=== PATIENT | male | born 1960 | race Caucasian/White ===

== ENCOUNTER 2017-01-31 08:28 | Emergency (ER) | payer BC, OTHER ==
[~2017-01-31] VITALS: Ht 172.7 cm; Wt 80.0 kg
[~2017-01-31 08:28] MED LIST: BACT800T5 PO; CEPH500C3 PO
[2017-01-31 08:31] VITALS: BP 115/74; PULSE 94; RESP 16; TEMP 98.2; O2SAT 97
[2017-01-31] MEDS ORDERED: LISI-519 PO (08:50)
[2017-01-31] MEDS ORDERED: GLIM2TAB PO (08:50)
[2017-01-31] MEDS ORDERED: METF1000 PO (08:50)
[2017-01-31] MEDS ORDERED: CANA300T PO (08:50)
[2017-01-31] MEDS ORDERED: GABA300C5 PO (08:50)
[2017-01-31] MEDS ORDERED: TAMS0.4C4 PO (08:50)
[2017-01-31 08:54] VITALS: O2SAT 96
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
[2017-01-31 09:09] LABS: AUTOMATED NEUTROPHIL # 5.8 TH/MM3 (1.8-7.7); BASOPHIL % 0.4 % (0.0-2.0); EOSINOPHIL # 0.1 TH/MM3 (0-0.4); EOSINOPHIL % 0.7 % (0.0-4.0); HEMATOCRIT 50.7 % (39.0-51.0); HEMO FLAGS DIFF FINAL; LYMPH % 20.4 % (9.0-44.0); LYMPHOCYTE # 1.7 TH/MM3 (1.0-4.8); MEAN CELL VOLUME 91.3 FL (80.0-100.0); MEAN CORPUSCULAR HEMOGLOBIN 31.2 PG (27.0-34.0); MEAN CORPUSCULAR HGB CONC 34.2 % (32.0-36.0); MONO % 7.8 % (0.0-8.0); NEUT % 70.7 % (16.0-70.0); PLATELET COUNT 224 TH/MM3 (150-450); RED BLOOD COUNT 5.55 MIL/MM3 (4.50-5.90); RED CELL DISTRIBUTION WIDTH 13.3 % (11.6-17.2); WHITE BLOOD COUNT 8.2 TH/MM3 (4.0-11.0)
[2017-01-31 09:34] LABS: ALKALINE PHOSPHATASE 69 U/L (45-117); ALT (GPT) 37 U/L (12-78); TOTAL BILIRUBIN ADULT 0.5 MG/DL (0.2-1.0)
[2017-01-31 09:39] LABS: ANION GAP 7 MEQ/L (5-15); AST (GOT) 21 U/L (15-37); BICARBONATE 25.9 MEQ/L (21.0-32.0); BLOOD UREA NITROGEN 12 MG/DL (7-18); CHLORIDE 101 MEQ/L (98-107); GLOMERULAR FILTRATION RATE 84 ML/MIN (>89); POTASSIUM 4.3 MEQ/L (3.5-5.1); SODIUM (NA) 134 MEQ/L (136-145)
[2017-01-31] MEDS ORDERED: IOHEXOL 350 MG/ML 10 ML VIAL (for RAD DIAG) IV ONE (10:54)
--- NOTE | 2017-01-31 11:20 | RADRPT ---
EXAM DATE/TIME: 01/31/2017 10:14 [facility] COMPARISON: No previous studies available for comparison. INDICATIONS : Bilateral leg numbness, unable to walk this morning. IV CONTRAST: 75 cc Omnipaque 350 (iohexol) IV RADIATION DOSE: 2.76 CTDIvol (mGy) MEDICAL HISTORY : Hypertension. Peripheral vascular disease. Diabetes mellitus type 2. SURGICAL HISTORY : None. ENCOUNTER: Initial ACUITY: 1 day PAIN SCALE: 0/10 LOCATION: Bilateral lower legs TECHNIQUE: Volumetric scanning was performed using a multi-row detector CT scanner. The data was post processed with a variety of visualization algorithms including full volume maximum intensity projection, multi -planar sliding thin slab reformation, curved planar reformation, and surface rendering techniques. Using automated exposure control and adjustment of the mA and/or kV according to patient size, radiat ion dose was kept as low as reasonably achievable to obtain optimal diagnostic quality images. DICO M format image data is available electronically for review and comparison. FINDINGS: AORTA: Mild mixed plaque in the distal abdominal aorta with resultant mild distal aortic stenosis. Abdominal aorta is otherwise normal in caliber without evidence for dissection or aneurysm. 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 Single right renal artery. The renal arteries are patent. C eliac, SMA, and SUMI are widely patent. RIGHT LEG: INFLOW: Circumferential diffuse mixed plaque in the possible to mid common iliac artery with diffuse mild to moderate stenosis. Internal iliac artery is patent. External iliac artery is patent. Mild mixed plaqu e involving the proximal common femoral artery which is otherwise patent. OUTFLOW: Profunda is patent. A focal approximately 2-3 cm length severe stenosis of the distal SFA near the ad ductor canal. The popliteal artery is patent. RUNOFF: Two-vessel runoff via the anterior tibial and peroneal arteries. The posterior tibial artery is occlu ded. LEFT LEG: INFLOW: Calcified plaque in the distal common iliac artery with mild resultant stenosis. Internal iliac arter y is patent. External iliac artery is patent. OUTFLOW: Profunda is patent. SFA is diffusely diseased and the mid thigh and occluded with reconstitution dist ally near the abductor canal via profunda collaterals. Popliteal artery is patent. RUNOFF: There is a patent three-vessel runoff on the left as well as the tibial vessels are very small in maged iber likely related to decreased flow. GENERAL FINDINGS: Visualized lung bases are clear. Evaluation of the abdominal viscera is limited due to arterial phase technique. Liver, spleen, adrenal glands, gallbladder, and pancreas are grossly unremarkable. There is a 2.0 x 1.0 cm cyst in the inferior mid right kidney. Kidneys demonstrate symmetrical enhancement without evidence for radiopaque renal calculi or hydronephrosis. No significant renal mass. The bowel appears unremarkable without evidence for obstruction. No significant free fluid or drainable fluid collection. Bladder is mildly distended but otherwise unremarkable. Prostate and seminal vesicles are within norm al limits. CONCLUSION: 1. No significant aortic occlusive disease. 2. [id number] diffuse right common artery stenosis secondary to mixed plaque in the proximal to mid right common iliac artery. If confirmed with angiography, patient would benefit from inflow inte rvention. 3. Focal, approximately 23 cm length, severe stenosis of the distal right SFA near the adductor canal . This is amenable to atherectomy. 4. Occlusion of the mid to distal left SFA with reconstitution near the adductor canal via profunda c ollaterals. This is also likely amenable to endovascular intervention. 5. Two-vessel runoff on the right with likely limited two-vessel runoff on the left. Marquez Singer MD on January 31, 2017 at 11:00 Board Certified Radiologist. This report was verified electronically.
[2017-01-31] MEDS ORDERED: HYDR-3533 PO (12:10)
[2017-01-31] MEDS ORDERED: LOVA20TA PO (12:10)
[2017-01-31] MEDS ORDERED: PLAV75TA29 PO (12:10)
== END 2017-01-31 13:00 | disposition home or self-care (01) ==
LOC: NEPE 08:28
DX: I73.9 Peripheral vascular disease, unspecified (principal); R20.0 Anesthesia of skin; R20.2 Paresthesia of skin; E11.9 Type 2 diabetes mellitus without complications; Z72.0 Tobacco use; Z79.02 Long term (current) use of antithrombotics/antiplatelets; Z79.899 Other long term (current) drug therapy
CPT/HCPCS: 75635; 80053; 85025; 99285; Q9967